=== PATIENT | female | born 1930 | race Caucasian/White ===

== ENCOUNTER 2019-01-30 12:35 | Inpatient (IN) | payer MEDICARE, BC ==
[~2019-01-30] VITALS: Ht 157.5 cm; Wt 51.1 kg
[2019-01-30] VITALS (307 sets, daily range): BP systolic 132–164; BP diastolic 63–99; PULSE 65–89; TEMP 97–97.4; O2SAT 77–100
[2019-01-30] MEDS ORDERED: SYNTHROID0.088 MG/T PO (12:49)
[2019-01-30] MEDS ORDERED: ATARAX 25MG25 MG/TAB PO (12:50)
[2019-01-30 13:00] LABS: BASO % 0.3 % (0.0-2.0); EOS % 0.4 % (0-4.0); GRAN # 7.1 (1.4-6.5); GRAN % 68.4 % (42.2-75.2); HEMATOCRIT 38.4 % (37.0-47.0); HEMOGLOBIN 12.8 g/dl (12.5-16.0); LYMPH # 2.1 (1.2-3.4); LYMPH % 20.6 % (20.0-51.0); MEAN CELL VOLUME 92 fl (80.0-100.0); MEAN CORPUSCULAR HEMOGLOBIN 31 pg (27.0-31.0); MEAN CORPUSCULAR HGB CONC 33 g/dl (33.0-37.0); MEAN PLATELET VOLUME 11.4 fl (7.4-10.4); MONO % 9.5 % (1.7-9.3); PLATELET COUNT 182 K/mm3 (130-400); RED BLOOD COUNT 4.19 M/mm3 (4.10-5.30); REDCELL DISTRIBUTION WIDTH-CV 12.3 % (11.5-14.5)
[2019-01-30 13:06] LABS: INR 1.1 (0.8-3.0); PROTHROMBIN TIME 12.5 SECONDS (9.7-12.8)
[2019-01-30 13:21] LABS: STREP SCREEN NEGATIVE
[2019-01-30 13:36] LABS: ALANINE AMINOTRANSFERASE 161 U/L (9-52); ALKALINE PHOSPHATASE 155 U/L (50-136); ANION GAP 12 mmol/L (7-16); AST,SGOT 79 U/L (15-37); BILIRUBIN,TOTAL 0.6 mg/dL (0.0-1.0); BLOOD UREA NITROGEN 16 mg/dL (7-17); CALCIUM 9.1 mg/dL (8.4-10.2); CARBON DIOXIDE 23 mmol/L (22-30); CHLORIDE 100 mmol/L (98-107); CREATININE, serum 0.88 (0.52-1.25); GLUCOSE 166 mg/dL (74-106); POTASSIUM 3.5 mmol/L (3.4-5.0); SODIUM 135 mmol/L (137-145); TOTAL PROTEIN 7.3 gm/dL (6.4-8.2)
[2019-01-30 13:53] LABS: TROPONIN-I < 0.012 ng/mL (0.000-0.035)
--- NOTE | 2019-01-30 17:10 | NUR ---
To ICU 7 via bed after pacemaker placement. Awake and alert, sling to left arm. Dressing to left upper chest CDI. Denies complaints of pain. Dennis to room, call light at side.
--- NOTE | 2019-01-30 19:15 | NUR ---
Bedside report given to Yelitza DE SOUZA. Family at bedside, passcode and contact information given. Patient denies needs at this time.
--- NOTE | 2019-01-30 19:45 | NUR ---
Patient resting in bed; denies any pain or concerns at this time. Reminded patient about limitations to left arm due to new pacemaker implant. Currenlty wearing an arm sling and appropriately following precautions.
[2019-01-31] VITALS (226 sets, daily range): BP systolic 103–130; BP diastolic 56–67; PULSE 61–77; TEMP 97.8–98.3; O2SAT 61–100
[2019-01-31 05:20] LABS: BASO % 0.2 % (0.0-2.0); EOS % 0.1 % (0-4.0); GRAN # 7.5 (1.4-6.5); HEMOGLOBIN 10.9 g/dl (12.5-16.0); LYMPH # 1.5 (1.2-3.4); LYMPH % 14.9 % (20.0-51.0); MEAN CELL VOLUME 90 fl (80.0-100.0); MEAN CORPUSCULAR HEMOGLOBIN 30 pg (27.0-31.0); MEAN CORPUSCULAR HGB CONC 33 g/dl (33.0-37.0); MEAN PLATELET VOLUME 10.9 fl (7.4-10.4); MONO # 0.7 (0.1-0.6); MONO % 7.4 % (1.7-9.3); PLATELET COUNT 161 K/mm3 (130-400); RED BLOOD COUNT 3.62 M/mm3 (4.10-5.30); REDCELL DISTRIBUTION WIDTH-CV 12.2 % (11.5-14.5)
[2019-01-31 05:22] LABS: HEMATOCRIT 32.6 % (37.0-47.0)
[2019-01-31 05:36] LABS: ALBUMIN 3.2 gm/dL (3.5-5.0); BILIRUBIN,TOTAL 0.5 mg/dL (0.0-1.0); CALCIUM 8.6 mg/dL (8.4-10.2); CREATININE, serum 0.6 (0.52-1.25)
--- NOTE | 2019-01-31 06:13 | NUR ---
Patient assisted with repositioning for comfort and administered PRN Tylenol for complaints of a "sore back". Will continue to monitor.
--- NOTE | 2019-01-31 07:10 | NUR ---
Report received from Yelitza DE SOUZA and care resumed.
--- NOTE | 2019-01-31 08:25 | NUR ---
Assessment complete. Pt denies any pain or concerns at this time. Does state she hopes to go home today. Waiting on doctors at this time. Will continue to follow.
--- NOTE | 2019-01-31 09:12 | NUR ---
Dr Ignacio in to see pt at this time.
--- NOTE | 2019-01-31 10:44 | NUR ---
Patient was sleeping.
[2019-01-31] MEDS ORDERED: CEPHALEXIN500 M1 PO (12:55)
--- NOTE | 2019-01-31 14:57 | NUR ---
Pt given discharge instructions with son present. INT dc'd and pt helped with getting dressed. Taken out by wheelchair for discharge at this time.
== END 2019-01-31 14:55 | disposition home or self-care (01) | DRG 244 ==
LOC: COL.ER 12:35 → ICU 13:07
PROVIDERS: Emergency Medicine; Physician Assistant; ADMIT Family Medicine
PROC: 0JH606Z Insertion of Pacemaker, Dual Chamber into Chest Subcutaneous Tissue and Fascia, Open Approach (ICD-10-PCS; principal; 2019-01-30)
PROC: 02H63JZ Insertion of Pacemaker Lead into Right Atrium, Percutaneous Approach (ICD-10-PCS; 2019-01-30)
PROC: 02HK3JZ Insertion of Pacemaker Lead into Right Ventricle, Percutaneous Approach (ICD-10-PCS; 2019-01-30)
DX: I44.2 Atrioventricular block, complete (principal); E03.9 Hypothyroidism, unspecified; J06.9 Acute upper respiratory infection, unspecified; E11.9 Type 2 diabetes mellitus without complications; Z90.49 Acquired absence of other specified parts of digestive tract; Z90.710 Acquired absence of both cervix and uterus; Z90.722 Acquired absence of ovaries, bilateral; Z98.42 Cataract extraction status, left eye; Z98.41 Cataract extraction status, right eye
CPT/HCPCS: 99222-AI; 99239; J0690; J2250; J3010; J7030